=== PATIENT | female | born 1960 | race Caucasian/White ===

== ENCOUNTER 2016-10-20 16:44 | Emergency (ER) | payer OTHER ==
[~2016-10-20] VITALS: Ht 157.5 cm; Wt 122.5 kg
[~2016-10-20 16:44] MED LIST: ACETAMINOPHEN325 M1 PO; BUSPIRONE HCL15 MG PO; CLONIDINE HCL0.1 MG PO; CLOTRIMAZOLE-BE15 GM TOP; COZAAR100 MG PO; FENOFIBRATE160 MG PO; GLIMEPIRIDE4 MG PO; HUMALOG KW200 UNIT/1 SUB-Q; ISOSORBIDE MONO30 MG PO; KEPPRA500 MG PO; LANTUS SOL100 UNIT/1 SUB-Q; LORAZEPAM1 MG PO; METOCLOPRAMIDE10 MG PO; MILK OF MA400 MG/5 M PO; MIRAPEX0.125 MG PO; MORPHINE SULFAT15 MG PO; OMEPRAZOLE20 MG PO; OXYCODONE HCL15 MG PO; PAROXETINE HCL20 MG PO; POLYETHYLENE GL17 GM PO; PRILOSEC20 MG PO; PROMETHAZINE HC25 M1 PO; PROMETHAZINE HC25 MG PR; ROXICODONE15 MG PO; RULOX SUSPENSI355 ML PO; VITAMIN D250000 UNIT PO; ZANTAC300 MG PO; ZOFRAN ODT4 MG PO; ZOLPIDEM TARTRAT5 MG PO
[2016-10-20] MEDS ORDERED: PREDNISONE20 MG PO (17:50)
[2016-10-20] MEDS ORDERED: GABAPENTIN100 MG PO (17:50)
[2016-10-21] MEDS ORDERED: PERCOCET 5-3251 EACH PO (20:42)
[2016-10-21] MEDS ORDERED: IMODIUM A-D2 M2 PO (20:44)
[2016-10-21] MEDS ORDERED: NYSTOP60 GM TOP (20:45)
[2016-10-21] MEDS ORDERED: PROTONIX40 MG PO (20:47)
[2016-10-21] MEDS ORDERED: LINZESS145 MCG PO (20:47)
[2016-10-21] MEDS ORDERED: MIRAPEX0.125 MG PO (20:48)
[2016-10-21] MEDS ORDERED: TRAZODONE HCL100 MG PO (20:49)
[2016-10-21] MEDS ORDERED: NICODERM CQ1 EACH TD (20:50)
[2016-10-21] MEDS ORDERED: MOBIC15 MG PO (20:51)
[2016-10-21] MEDS ORDERED: MORPHINE SULFAT30 M2 PO (20:53)
[2016-10-21] MEDS ORDERED: LANTUS SOL100 UNIT/1 SUB-Q (20:54)
[2016-10-21] MEDS ORDERED: LOVASTATIN20 MG PO (20:55)
[2016-10-21] MEDS ORDERED: ENULOSE10 GM/15 M PO (20:56)
[2016-10-21] MEDS ORDERED: DULOXETINE HCL30 MG PO (20:57)
[2016-10-21] MEDS ORDERED: NEURONTIN300 MG PO (20:59)
[2016-10-23] MEDS ORDERED: PROMETHAZINE HC25 MG PR (09:59)
[2016-10-23] MEDS ORDERED: PROMETHAZINE HC25 M1 PO (09:59)
[2016-10-23] MEDS ORDERED: ENULOSE10 GM/15 M PO (10:00)
[2016-10-23] MEDS ORDERED: DULCOLAX5 MG PO (10:02)
[2016-10-23] MEDS ORDERED: METOCLOPRAMIDE H5 MG PO (10:04)
== END 2016-10-20 18:13 | disposition home or self-care (01) ==
LOC: ED 16:44
DX: M54.16 Radiculopathy, lumbar region (principal); I10 Essential (primary) hypertension; F41.9 Anxiety disorder, unspecified; E78.00 Pure hypercholesterolemia, unspecified; F31.9 Bipolar disorder, unspecified; J45.909 Unspecified asthma, uncomplicated; E11.9 Type 2 diabetes mellitus without complications; E66.9 Obesity, unspecified; F17.200 Nicotine dependence, unspecified, uncomplicated; Z90.49 Acquired absence of other specified parts of digestive tract; Z79.899 Other long term (current) drug therapy; Z79.4 Long term (current) use of insulin
CPT/HCPCS: 99283

== ENCOUNTER 2016-10-21 20:33 | Emergency (ER) | payer OTHER ==
[~2016-10-21] VITALS: Ht 157.5 cm; Wt 122.5 kg
[~2016-10-21 20:33] MED LIST changes: +GABAPENTIN100 MG PO; +PREDNISONE20 MG PO
[2016-10-21] MEDS ORDERED: PERCOCET 5-3251 EACH PO (20:42)
[2016-10-21] MEDS ORDERED: IMODIUM A-D2 M2 PO (20:44)
[2016-10-21] MEDS ORDERED: NYSTOP60 GM TOP (20:45)
[2016-10-21] MEDS ORDERED: PROTONIX40 MG PO (20:47)
[2016-10-21] MEDS ORDERED: LINZESS145 MCG PO (20:47)
[2016-10-21] MEDS ORDERED: MIRAPEX0.125 MG PO (20:48)
[2016-10-21] MEDS ORDERED: TRAZODONE HCL100 MG PO (20:49)
[2016-10-21] MEDS ORDERED: NICODERM CQ1 EACH TD (20:50)
[2016-10-21] MEDS ORDERED: MOBIC15 MG PO (20:51)
[2016-10-21] MEDS ORDERED: MORPHINE SULFAT30 M2 PO (20:53)
[2016-10-21] MEDS ORDERED: LANTUS SOL100 UNIT/1 SUB-Q (20:54)
[2016-10-21] MEDS ORDERED: LOVASTATIN20 MG PO (20:55)
[2016-10-21] MEDS ORDERED: ENULOSE10 GM/15 M PO (20:56)
[2016-10-21] MEDS ORDERED: DULOXETINE HCL30 MG PO (20:57)
[2016-10-21] MEDS ORDERED: NEURONTIN300 MG PO (20:59)
[2016-10-22] MEDS ORDERED: LOTRIMIN AF12 GM TOP (10:13)
[2016-10-22] MEDS ORDERED: CYMBALTA60 MG PO (12:09)
[2016-10-22] MEDS ORDERED: AMARYL4 MG PO (12:12)
[2016-10-22] MEDS ORDERED: ISOSORBIDE MONO30 MG PO (12:15)
[2016-10-23] MEDS ORDERED: PROMETHAZINE HC25 MG PR (09:59)
[2016-10-23] MEDS ORDERED: PROMETHAZINE HC25 M1 PO (09:59)
[2016-10-23] MEDS ORDERED: ENULOSE10 GM/15 M PO (10:00)
[2016-10-23] MEDS ORDERED: DULCOLAX5 MG PO (10:02)
[2016-10-23] MEDS ORDERED: METOCLOPRAMIDE H5 MG PO (10:04)
== END 2016-10-22 | disposition home or self-care (01) ==
LOC: ED 20:33
DX: R10.9 Unspecified abdominal pain (principal); E11.9 Type 2 diabetes mellitus without complications; I10 Essential (primary) hypertension; F41.9 Anxiety disorder, unspecified; E78.00 Pure hypercholesterolemia, unspecified; F31.9 Bipolar disorder, unspecified; J45.909 Unspecified asthma, uncomplicated; E66.9 Obesity, unspecified; F17.200 Nicotine dependence, unspecified, uncomplicated; Z90.49 Acquired absence of other specified parts of digestive tract; Z79.899 Other long term (current) drug therapy; Z79.891 Long term (current) use of opiate analgesic; Z79.4 Long term (current) use of insulin
CPT/HCPCS: 74177; 80053; 81001; 83690; 85025; 96374; 96375; 99284; J2270; J2405; J2550; J7030; Q9967

== ENCOUNTER 2016-10-23 10:59 | Emergency (ER) | payer OTHER ==
[~2016-10-23] VITALS: Ht 157.5 cm; Wt 131.1 kg
[~2016-10-23 10:59] MED LIST changes: +AMARYL4 MG PO; +CYMBALTA60 MG PO; +DULCOLAX5 MG PO; +DULOXETINE HCL30 MG PO; +ENULOSE10 GM/15 M PO; +IMODIUM A-D2 M2 PO; +LINZESS145 MCG PO; +LOTRIMIN AF12 GM TOP; +LOVASTATIN20 MG PO; +METOCLOPRAMIDE H5 MG PO; +MOBIC15 MG PO; +MORPHINE SULFAT30 M2 PO; +NEURONTIN300 MG PO; +NICODERM CQ1 EACH TD; +NYSTOP60 GM TOP; +PERCOCET 5-3251 EACH PO; +PROTONIX40 MG PO; +TRAZODONE HCL100 MG PO
== END 2016-10-23 11:44 | disposition home or self-care (01) ==
LOC: ED 10:59
PROC: 0HQ1XZZ Repair Face Skin, External Approach (ICD-10-PCS; principal; 2016-10-23)
DX: S01.511A Laceration without foreign body of lip, initial encounter (principal); E11.43 Type 2 diabetes mellitus with diabetic autonomic (poly)neuropathy; K31.84 Gastroparesis; I10 Essential (primary) hypertension; F41.9 Anxiety disorder, unspecified; E78.00 Pure hypercholesterolemia, unspecified; F31.9 Bipolar disorder, unspecified; J45.909 Unspecified asthma, uncomplicated; E66.9 Obesity, unspecified; F17.200 Nicotine dependence, unspecified, uncomplicated; Z90.49 Acquired absence of other specified parts of digestive tract; Z79.899 Other long term (current) drug therapy; Z79.4 Long term (current) use of insulin; X58.XXXA Exposure to other specified factors, initial encounter
CPT/HCPCS: 12011; 99282

== ENCOUNTER 2016-10-23 16:31 | Emergency (ER) | payer OTHER ==
[~2016-10-23] VITALS: Ht 157.5 cm; Wt 131.1 kg
== END 2016-10-23 19:46 | disposition home or self-care (01) ==
LOC: ED 16:31
DX: R11.2 Nausea with vomiting, unspecified (principal); R10.9 Unspecified abdominal pain; I10 Essential (primary) hypertension; F41.9 Anxiety disorder, unspecified; E78.00 Pure hypercholesterolemia, unspecified; F31.9 Bipolar disorder, unspecified; J45.909 Unspecified asthma, uncomplicated; E11.43 Type 2 diabetes mellitus with diabetic autonomic (poly)neuropathy; K31.84 Gastroparesis; E66.9 Obesity, unspecified; F17.200 Nicotine dependence, unspecified, uncomplicated; Z90.49 Acquired absence of other specified parts of digestive tract; Z79.899 Other long term (current) drug therapy
CPT/HCPCS: 80053; 83690; 85025; 96365; 96375; 99284; J2405; J3230; J7040

== ENCOUNTER 2017-02-28 13:13 | Inpatient (IN) | payer OTHER ==
[~2017-02-28] VITALS: Ht 157.5 cm; Wt 133.4 kg
[2017-02-28] MEDS ORDERED: MOBIC15 MG PO (14:15)
--- NOTE | 2017-02-28 20:01 | NUR ---
PT ARRIVED TO THE FLOOR VIA STRETCHER. ABLE TO TRANSFER SELF TO BED WITH 1 PERSON ASSIST. PT COMPLAINS OF BACK PAIN, BUT IS IN AND OUT OF SLEEP AND IS UNABLE TO GIVE A PAIN RATE NUMBER. PT IS IN NO APPARENT DISTRESS. DROWSY AT THIS TIME, WAKES TO VOICE BUT FALLS ASLEEP SHORTLY AFTER SPEAKING. PTS EYES ARE CLOSED AND SHE APPEARS TO BE SNORING. O2 SAT 95% ON 2L NC. HR 60. GAVE WARM BLANKET. ORIENTED PT TO ROOM. CALL LIGHT IN REACH. BED ALARM FOR SAFETY.
--- NOTE | 2017-02-28 22:32 | NUR ---
BROUGHT PT LUNCH BOX PER REQUEST. PT ATE HALF OF THE SANDWICH. HR 56, O2 SAT 94%. PT RATED PAIN AT 9/10, GAVE MORPHINE PO PRN FOR PAIN. PT SITTING UP WATCHING TV. NO APPARENT DISTRESS. CALL LIGHT IN REACH.
--- NOTE | 2017-02-28 23:03 | NUR ---
PT APPEARS TO BE SLEEPING. RR WNL AND UNLABORED.
--- NOTE | 2017-02-28 23:50 | EKG ---
[facility] [address] [place] [place] [id number] Signed Normal sinus rhythm Nonspecific ST and T wave abnormality Abnormal ECG When compared with ECG of 22-OCT-2016 06:42, Vent. rate has decreased BY 33 BPM Confirmed by NATHALY SMITH MD ([id number]) on 02/28/2017 11:50:27 PM Electronically Signed By: NATHALY SMITH MD 02/28/17 2350 PATIENT NAME: ELIECER LARSON Electrocardiogram DATE OF : 56 PHYSICIAN: NATHALY SMITH MD REPORT #: [id number] REPORT IS CONFIDENTIAL AND NOT TO BE RELEASED WITHOUT AUTHORIZATION
--- NOTE | 2017-03-01 00:07 | NUR ---
PT APPEARS TO BE SLEEPING. RR WNL AND UNALBORED. O2 SAT 94 ON 2L VIA NC. HR 70. LIGHTS AND TV OFF IN ROOM.
--- NOTE | 2017-03-01 00:32 | NUR ---
PT COMPLAINED OF LEG PAIN, REPOSTIIONED PT IN BED.
--- NOTE | 2017-03-01 00:52 | NUR ---
ASSISTED PATIENT TO USE THE BEDSIDE COMMODE AND BACK TO BED. PATIENT IS CRYING STATED "CANT MAKE COMFORTABLE". ADD PILLOW FOR HER BACK. NURSE IS AWARE.
--- NOTE | 2017-03-01 01:16 | NUR ---
PT COMPLAINED OF 10/10 PAIN. YELLING OUT, GRABBING AT HER LEGS. PT SAT UP IN CHAIR FOR A FEW MINUTES, PLACED KPAD ON BACK AND BUTTOCK AREA. PT THEN ASKED TO AMBULATE. GAVE FWW AND HOOKED HER UP TO PORTABLE OXYGEN, PT STOOD AND AMBULATED A COUPLE STEPS AND DECIDED SHE WANTED BACK IN BED. PT NOW IN BED. ALL ORDERS IN PLACE. CALL LIGHT IN REACH.
--- NOTE | 2017-03-01 02:22 | NUR ---
PT WITH EYES CLOSED, RESP EVEN AND UNLABORED. PULSEOX READING O2 SATS @94% ON 2L PER NC. CALL BARKER WITHIN REACH. PT LAYING ON HER RIGHT SIDE.
--- NOTE | 2017-03-01 02:59 | NUR ---
PT APPEARS TO BE SLEEPING. RR WNL AND UNLABORED.
--- NOTE | 2017-03-01 04:11 | NUR ---
PT INCONTINENT OF URINE. CLEANED PT UP AND NEW GOWN ON. CLEANED MATTRESS AND CHANGED LINENS. PT CRYING OUT AND GRABBING ONTO LEG, REPORTING 10/10 PAIN IN HER BUTTOCK, LEGS AND ANKLE. GAVE MORPHINE PRN FOR PAIN. PT BACK IN BED. ALL ORDERS IN PLACE. CALL LIGHT IN REACH.
--- NOTE | 2017-03-01 05:08 | NUR ---
PT APPEARS TO BE SLEEPING, RR WNL AND UNLABORED.
--- NOTE | 2017-03-01 07:36 | NUR ---
PT SITTING UP IN RECLINER REQUEST PAIN MEDICATION, NOT AVAILABLE UNTIL [phone], PT REQUEST HOT SHOWER, FLOAT RN KAR IN ROOM TO ASSIST. RN EXPLAINED TO PT THAT AFTER HER SHOWER SHE CAN HAVE HER MORNING MEDICATIONS, PT APPEARS ANXIOUS ROCKING FORWARD AND BACK. SHE REPORTS SHE WANTS TO GO HOME. EDUCATION PROVIDED TO PT IN REGARDS TO HER CURRENT ADMISSION DX AND NEED FOR TREATMENT. PT AGREES.
--- NOTE | 2017-03-01 08:13 | NUR ---
ASSESSED PT BLOOD SUGAR. PT JUST FINISHING SHOWER WITH [employer]PORATE LICENSED [employer]. PT APPEARS SLIGHTLY MORE COMFORTABLE THAN WHEN ASSISTED TO SHOWER.
--- NOTE | 2017-03-01 08:18 | NUR ---
PT IN SHOWER. IS IN ALOT OF BACK PAIN. AM CARE. LET NURSE KEVIN KNOW.
--- NOTE | 2017-03-01 08:34 | NUR ---
PT GIVEN 4 UNITS FROM NOVALOG S/S. PER NEW ORDER. NO TIME FRAME TO CHART TO.
--- NOTE | 2017-03-01 09:30 | NUR ---
PT UP TO BEDSIDE COMMODE HAD BM AND VOIDED 300 ML CLEAR YELLOW URINE. SHE CONTINUES TO REPORT HIGH LEVELS OF PAIN 8-9, PAIN MEDICATION HAVE BEEN GIVEN. SHE REPORTS PAIN AT RIGHT HIP AREA, WARM PACK ALSO GIVEN TO SITE
--- NOTE | 2017-03-01 10:15 | NUR ---
PATIENT SLEEPING COMFORTABLE. O2 SATS ARE 90% ON ROOM AIR AT THIS TIME.
[2017-03-01] MEDS ORDERED: CYMBALTA30 MG PO (11:48)
[2017-03-01] MEDS ORDERED: NEURONTIN100 MG PO (11:50)
--- NOTE | 2017-03-01 11:56 | NUR ---
PT REPORTS PAIN 10/31, CALLED, TO CALL BACK FOR UPDATE
[2017-03-01] MEDS ORDERED: HUMALOG KW200 UNIT/1 SUB-Q (12:04)
--- NOTE | 2017-03-01 12:09 | NUR ---
MED REC COMPLETE WITH [facility].
--- NOTE | 2017-03-01 12:23 | NUR ---
DISCUSSED WITH OVER THE PHONE PT HIGH PAIN AND ANXIETY FROM FROM THE PAIN. SAID HE WOULD ORDER HER HOME PAIN COVERAGE. OXYCODONE GIVEN. WILL MONITOR CLOSLY
--- NOTE | 2017-03-01 13:04 | NUR ---
PT RESTING IN BED AT THIS TIME. SHE SAID SHE WOULD LIKE TO TAKE A REST SINCE SHE DID NOT SLEEP ALL NIGHT.
--- NOTE | 2017-03-01 13:11 | NUR ---
TOOK PT A HOT PACK. HELPED PT TO THE CHAIR. PT SAW SOME BLOOD ON HER SHEETS. SHE WAS SCARED AND STARTED TO BREATH HEAVY. I WENT AND GOT HER NURSE KEVIN. WE ASSESED THE PT AND SAW SHE HAS A SMALL SCRATCH ON HER INER R THIGH. NURSE KEVIN CLEANED AND DRESSED THE SCRATCH. PT IS NOW RESTING IN HER CHAIR.
[2017-03-01] MEDS ORDERED: ELIQUIS5 MG PO (13:53)
--- NOTE | 2017-03-01 14:16 | NUR ---
GERMAN WITH PHARMACY IN WITH PT AT THIS TIME FOR MEDICATION EDUCATION.
--- NOTE | 2017-03-01 14:21 | NUR ---
PT GIVEN MS ER SCEDULED AT THIS TIME. PT REPORTS PAIN 10/31.
--- NOTE | 2017-03-01 14:30 | NUR ---
PT GIVEN DISCHARGE PACKET AND EDUCATION ON FOLLOW UP APPOINTMENT, ACTIVITY, MEDICATIONS FIRST DOSE/ LAST DOSE. EDUCATION ON SMOKING CESSATION AND NICOTINE PATCHES. EDUCATIONS ON CURRENT ILLNESS. REPORT CALLED TO UDAY HAYES AT [facility].
== END 2017-03-01 14:50 | disposition home or self-care (01) | DRG 175 ==
LOC: ED 13:13 → MS 18:56
PROVIDERS: ADMIT Internal Medicine
DX: I26.99 Other pulmonary embolism without acute cor pulmonale (principal); J96.01 Acute respiratory failure with hypoxia; J96.02 Acute respiratory failure with hypercapnia; I10 Essential (primary) hypertension; K59.09 Other constipation; F31.9 Bipolar disorder, unspecified; F41.9 Anxiety disorder, unspecified; E78.5 Hyperlipidemia, unspecified; K21.9 Gastro-esophageal reflux disease without esophagitis; G25.81 Restless legs syndrome; G89.4 Chronic pain syndrome; K31.9 Disease of stomach and duodenum, unspecified; E11.43 Type 2 diabetes mellitus with diabetic autonomic (poly)neuropathy; K31.84 Gastroparesis; G47.33 Obstructive sleep apnea (adult) (pediatric); Z79.4 Long term (current) use of insulin; Z91.19 Patient's noncompliance with other medical treatment and regimen; G40.909 Epilepsy, unspecified, not intractable, without status epilepticus; M79.7 Fibromyalgia; Z79.891 Long term (current) use of opiate analgesic
CPT/HCPCS: 36415; 71045; 71260; 80053; 81001; 82803; 83605; 83690; 83735; 83880; 84100; 84443; 84481; 84484; 85025; 85379; 85610; 87040; 87502; 93005; 93010; 94640; 96361; 96372; 96374; 99291; 99406; J1644; J1650; J7030; J7120; Q9967